=== PATIENT | female | born 1975 | race Caucasian/White ===

== ENCOUNTER 2017-07-17 21:16 | Emergency (ER) | payer OTHER ==
[2017-07-17 21:27] VITALS: BP 130/87; PULSE 70; TEMP 97.8; BMI 28.3
[2017-07-17] MEDS ORDERED: PANTOPRAZOLE SODIUM 40 MG VIAL IVPUSH ONE (22:30)
[2017-07-17] MEDS ORDERED: ONDANSETRON 4 MG/2 ML VIAL IVPUSH ONE (22:33)
--- NOTE | 2017-07-17 22:34 | PDOC ---
History of Present Illness - General Chief Complaint: Pain Stated Complaint: VOMITING,DIZZINESS Time Seen by Provider: 07/17/17 22:09 History Source: Patient Exam Limitations: No Limitations - History of Present Illness Initial Comments: 07/17/17 22:45 41F with significant past medical history of hypertension and hyperlipidemia who presents to the emergency department with 3 days of nausea, vomiting and epigastric pain and burning radiating to throat and periumbilical pain radiating to bladder exacerbated upon urination. 07/17/17 23:41 PCP: Dr. Ventura Past History - Past Medical History Allergies/Adverse Reactions: Allergies Allergy/AdvReac Type Severity Reaction Status Date / Time Penicillins Allergy Rash Verified 07/17/17 21:27 Home Medications: Ambulatory Orders NK [No Known Home Medication] 07/27/14 COPD: No Other medical history: denies - Surgical History Abdominal Surgery: Yes (HERNIA) Cardiac Surgery: Yes - Suicide/Smoking/Psychosocial Hx Smoking History: Never smoked Information on smoking cessation initiated: No Hx Alcohol Use: No Drug/Substance Use Hx: No Substance Use Type: None Review of Systems - Review of Systems Able to Perform ROS?: Yes Is the patient limited Czech proficient: Yes Constitutional: No: Symptoms Reported HEENTM: Yes: Throat Pain Respiratory: No: Symptoms reported Cardiac (ROS): No: Symptoms Reported ABD/GI: Yes: See HPI : Yes: See HPI Musculoskeletal: No: Symptoms Reported Integumentary: No: Symptoms Reported Neurological: No: Symptoms reported All Other Systems: Reviewed and Negative *Physical Exam - Vital Signs Last Vital Signs Temp Pulse Resp BP Pulse Ox 97.8 F 70 17 130/87 100 07/17/17 21:25 07/17/17 21:25 07/17/17 21:25 07/17/17 21:25 07/17/17 21:25 - Physical Exam General Appearance: Yes: Nourished, Appropriately Dressed, Apparent Distress HEENT: positive: EOMI, SHRUTHI, Normal ENT Inspection Respiratory/Chest: positive: Lungs Clear, Normal Breath Sounds. negative: Chest Tender, Respiratory Distress Cardiovascular: positive: Regular Rhythm, Regular Rate, S1, S2 Gastrointestinal/Abdominal: positive: Normal Bowel Sounds, Tender (epigastic. periumbilical), Flat, Soft Musculoskeletal: positive: Normal Inspection. negative: CVA Tenderness Extremity: positive: Normal Capillary Refill, Normal Inspection Integumentary: positive: Normal Color, Dry, Warm Neurologic: positive: Fully Oriented, Alert, Normal Mood/Affect, Normal Response , Motor Strength 09/17 ED Treatment Course - LABORATORY CBC & Chemistry Diagram: 07/17/17 22:45 07/17/17 22:45 Medical Decision Making - Medical Decision Making 07/17/17 22:56 will check labs and give zofran, protonix, fluids. 07/17/17 23:[address] Harding *DC/Admit/Observation/Transfer Diagnosis at time of Disposition: Abdominal pain - Referrals Referrals: Heather Miranda MD [Primary Care Provider] - - Patient Instructions - Post Discharge Activity
[2017-07-17] MEDS ORDERED: PANTOPRAZOLE SODIUM 40 MG VIAL ONE (22:41)
[2017-07-17] MEDS ORDERED: ONDANSETRON 4 MG/2 ML VIAL ONE (22:41)
[2017-07-17 22:53] LABS: BASO % 0.5 % (0-2.0); EOS % 5.1 % (0-4.5); HEMOGLOBIN 12.2 GM/dL (10.7-15.3); LYMPH % 26.8 % (8-40); MCH 30.2 pg (25.7-33.7); MEAN CELL VOLUME 88.7 fl (80-96); MEAN PLT VOLUME 8.6 fl (7.5-11.1); MONO % 9.1 % (3.8-10.2); NEUT % 58.5 % (42.8-82.8); PLATELET COUNT 233 K/MM3 (134-434); RBC 4.06 M/mm3 (3.60-5.2); RDW 14.2 % (11.6-15.6); WHITE BLOOD COUNT 7.1 K/mm3 (4.0-10.0)
[2017-07-17 23:22] LABS: ALBUMIN 3.8 g/dl (3.4-5.0); ANION GAP 13 (8-16); BILIRUBIN,TOTAL 0.2 mg/dL (0.2-1.0); BLOOD UREA NITROGEN 14 mg/dL (7-18); CALCIUM 8.6 mg/dL (8.5-10.1); CHLORIDE 106 mmol/L (98-107); CO2 22 mmol/L (21-32); CREATININE 0.8 mg/dL (0.55-1.02); GLUCOSE,RANDOM 84 mg/dL (74-106); POTASSIUM 3.3 mmol/L (3.5-5.1); SGOT/AST 22 U/L (15-37); SGPT/ALT 19 U/L (12-78); SODIUM 141 mmol/L (136-145); TOT PROT 8.3 g/dl (6.4-8.2)
[2017-07-17 23:23] LABS: ALK PHOS 95 U/L (45-117)
[2017-07-17] MEDS ORDERED: SODIUM CHLORIDE 1,000 ML IV STA (23:36)
[2017-07-17] MEDS ORDERED: POTASSIUM CHLORIDE TABS 20 MEQ TABLET.ER (FP) PO ONE (23:37)
[2017-07-17] MEDS ORDERED: MAG HYDROX/AL HYDROX/SIMETH 30 ML UNIT-DOSE CUP PO ONE (23:42)
[2017-07-18 00:08] LABS: URINE APPEARANCE CLEAR; URINE BILIRUBIN NEGATIVE (NEGATIVE); URINE BLOOD NEGATIVE (NEGATIVE); URINE COLOR COLORLESS; URINE GLUCOSE (UA) NEGATIVE (NEGATIVE); URINE KETONE NEGATIVE (NEGATIVE); URINE LEUK ESTERASE NEGATIVE (NEGATIVE); URINE NITRITE NEGATIVE (NEGATIVE); URINE PROTEIN NEGATIVE (NEGATIVE); URINE UROBILINOGEN NEGATIVE mg/dL (0.2-1.0)
[2017-07-18] MEDS ORDERED: MAG HYDROX/AL HYDROX/SIMETH 30 ML UNIT-DOSE CUP ONE (00:15)
[2017-07-18] MEDS ORDERED: POTASSIUM CHLORIDE TABS 20 MEQ TABLET.ER (FP) PO ONE (00:15)
[2017-07-18] MEDS ORDERED: MECLIZINE HCL 25 MG TABLET (FP) PO ONE (00:39)
--- NOTE | 2017-07-18 00:43 | PDOC ---
Attending Attestation - HPI HPI: 07/18/17 00:43 The patient is a 41 year old female with history of hypertension and hyperlipidemia who presents to the ED complaining of abdominal pain for approximately 3 days. She describes epigastric pain that is burning in nature, radiating to the neck, with associated nausea and nonbloody nonbilious vomiiting. She also complains of periumbilical and suprapubic pain that is worse when she urinates. No fever or chills. No chest pain or shortness of breath. - Physicial Exam PE: 07/18/17 00:46 GENERAL: Awake, alert, and fully oriented, in no acute distress HEAD: No signs of trauma EYES: PERRLA, EOMI, sclera anicteric, conjunctiva clear ENT: Auricles normal inspection, nares patent. Moist mucosa NECK: Normal ROM, supple, no JVD, or masses LUNGS: Breath sounds equal, clear to auscultation bilaterally. No wheezes, and no crackles HEART: Regular rate and rhythm, normal S1 and S2, no murmurs, rubs or gallops ABDOMEN: Soft, nontender, normoactive bowel sounds. No guarding, no rebound. No masses EXTREMITIES: Normal range of motion, no edema. No clubbing or cyanosis. No cords, erythema, or tenderness NEUROLOGICAL: Alert and oriented x 3. Moves all extremities. Face is symmetric. SKIN: Warm, Dry, normal turgor, no rashes or lesions noted. 07/18/17 00:49 Documentation prepared by Jaqueline Ferrari, acting as medical customer service representative for Celina Harding MD. <Jaqueline Ferrari - Last Filed: 07/18/17 00:49> - Resident Resident Name: Davey Yao - ED Attending Attestation I have performed the following: I have examined & evaluated the patient, The case was reviewed & discussed with the resident, I agree w/resident's findings & plan, Exceptions are as noted - Medical Decision Making 07/18/17 01:42 labs reviewed and k=3.3 and supplemented cbc normal ua negative stable VS ekg nsr 71 bpm no further vomitng abd no rebound.no guarding no fever IMP gastritis <Celina Harding - Last Filed: 07/18/17 01:45>
[2017-07-18] MEDS ORDERED: MECLIZINE HCL 25 MG TABLET (FP) ONE (01:08)
--- NOTE | 2017-07-18 01:12 | PDOC ---
*Physical Exam - Vital Signs Last Vital Signs Temp Pulse Resp BP Pulse Ox 97.8 F 70 17 130/87 100 07/17/17 21:25 07/17/17 21:25 07/17/17 21:25 07/17/17 21:25 07/17/17 21:25 ED Treatment Course - LABORATORY CBC & Chemistry Diagram: 07/17/17 22:45 07/17/17 22:45 - ADDITIONAL ORDERS Additional order review: Laboratory Results 07/17/17 07/17/17 23:58 22:45 Sodium 141 Potassium 3.3 L Chloride 106 Carbon Dioxide 22 Anion Gap 13 BUN 14 Creatinine 0.8 Creat Clearance w eGFR > 60 Random Glucose 84 Calcium 8.6 Total Bilirubin 0.2 D AST 22 ALT 19 Alkaline Phosphatase 95 Total Protein 8.3 H Albumin 3.8 Urine Color Colorless Urine Appearance Clear Urine pH 8.0 D Ur Specific [place] 1.004 Urine Protein Negative Urine Glucose (UA) Negative Urine Ketones Negative Urine Blood Negative Urine Nitrite Negative Urine Bilirubin Negative Urine Urobilinogen Negative Ur Leukocyte Esterase Negative 07/17/17 22:45 RBC 4.06 MCV 88.7 MCHC 34.0 RDW 14.2 MPV 8.6 Neutrophils % 58.5 Lymphocytes % 26.8 D Monocytes % 9.1 Eosinophils % 5.1 H Basophils % 0.5 - Medications Given in the ED: ED Medications Discontinued Medications Generic Name Dose Route Start Last Admin Trade Name Freq PRN Reason Stop Dose Admin Al Hydroxide/Mg Hydroxide 30 ml 07/17/17 23:42 07/18/17 00:26 Mylanta Oral Suspension - PO 07/17/17 23:43 30 ml ONCE ONE Administration Sodium Chloride 1,000 mls @ 1,000 mls/hr 07/17/17 23:36 07/18/17 00:25 Normal Saline - IV 07/18/17 00:35 1,000 mls/hr ASDIR STA Administration Ondansetron HCl 4 mg 07/17/17 22:33 07/17/17 23:05 Zofran Injection IVPUSH 07/17/17 22:34 4 mg ONCE ONE Administration Pantoprazole Sodium 40 mg 07/17/17 22:30 07/17/17 23:05 Protonix Iv IVPUSH 07/17/17 22:31 40 mg ONCE ONE Administration Potassium Chloride 20 meq 07/17/17 23:37 07/18/17 00:25 K-Dur - PO 07/17/17 23:38 20 meq ONCE ONE Administration *DC/Admit/Observation/Transfer Diagnosis at time of Disposition: Abdominal pain Qualifiers: Abdominal location: generalized Qualified Code(s): R10.84 - Generalized abdominal pain Nausea & vomiting Qualifiers: Vomiting type: unspecified Vomiting Intractability: non-intractable Qualified Code(s): R11.2 - Nausea with vomiting, unspecified - Discharge Dispostion Disposition: HOME Condition at time of disposition: Stable - Prescriptions Prescriptions: Ondansetron [Zofran Odt -] 4 mg SL TID PRN #12 od.tablet PRN Reason: Nausea And/Or Vomiting - Referrals Referrals: Heather Miranda MD [Primary Care Provider] - - Patient Instructions Printed Discharge Instructions: DI for Vomiting -- Adult, DI for Abdominal Pain -Adult Additional Instructions: please advance your diet as tolerated with liquids first then start with solids such as bananas,rice ,toast,applesauce Please follow up with you r physician Return if you develop fever or any worsening symptoms - Post Discharge Activity
--- NOTE | 2017-07-18 10:42 | EKG ---
Test Reason : Blood Pressure : / mmHG Vent. Rate : 071 BPM Atrial Rate : 071 BPM P-R Int : 156 ms QRS Dur : 080 ms QT Int : 382 ms P-R-T Axes : 062 063 049 degrees QTc Int : 415 ms NORMAL SINUS RHYTHM NORMAL ECG WHEN COMPARED WITH ECG OF 27-JUL-2014 12:55, NO SIGNIFICANT CHANGE WAS FOUND Confirmed by SANDRA BALDERAS MD ([id number]) on 07/18/2017 10:42:11 AM Referred By: Confirmed By:SANDRA BALDERAS MD
== END 2017-07-18 01:25 | disposition home or self-care (01) ==
LOC: JER 21:16
PROC: 3E033GC Introduction of Other Therapeutic Substance into Peripheral Vein, Percutaneous Approach (ICD-10-PCS; principal; 2017-07-17)
PROC: 3E0337Z Introduction of Electrolytic and Water Balance Substance into Peripheral Vein, Percutaneous Approach (ICD-10-PCS; 2017-07-17)
DX: R10.9 Unspecified abdominal pain (principal); I10 Essential (primary) hypertension; E78.5 Hyperlipidemia, unspecified; Z88.0 Allergy status to penicillin
CPT/HCPCS: 36415; 80053; 81003; 85025; 87086; 93005; 93010; 99282-25

== ENCOUNTER 2023-06-23 02:52 | Emergency (ER) | payer OTHER ==
[2023-06-23 03:03] VITALS: BP 146/87; PULSE 75; RESP 20; TEMP 98.2; BMI 34.0
[2023-06-23] MEDS ORDERED: ONDANSETRON 4 MG/2 ML VIAL ONE (05:42)
[2023-06-23] MEDS ORDERED: ACETAMINOPHEN INJECTION 100 ML IVPB ONE (05:42)
[2023-06-23] MEDS: ONDANSETRON 4 MG/2 ML VIAL IVPUSH ONE (05:48)
[2023-06-23] MEDS: ACETAMINOPHEN 1000 MG/100 ML BAG IVPB ONE (05:48)
[2023-06-23 06:11] LABS: BASO % 0.6 % (0-2.0); EOS % 2.3 % (0-4.5); HEMATOCRIT 36.5 % (32.4-45.2); LYMPH % 22.6 % (8-40); MCH 28.4 pg (25.7-33.7); MCHC 32.8 g/dl (32.0-36.0); MEAN CELL VOLUME 86.7 fl (80-96); MEAN PLT VOLUME 7.8 fl (7.5-11.1); MONO % 7.2 % (3.8-10.2); NEUT % 67.3 % (42.8-82.8); PLATELET COUNT 323 10^3/uL (134-434); RBC 4.21 M/mm3 (3.60-5.2); RDW 14.4 % (11.6-15.6)
[2023-06-23 06:13] LABS: EPI CELLS 14 /uL (0-25.1); HYALINE CASTS 0 /uL (0-3.1); URINE APPEARANCE CLEAR; URINE BACTERIA 31 /uL (0-1359); URINE BILIRUBIN NEGATIVE (NEGATIVE); URINE COLOR YELLOW; URINE GLUCOSE (UA) NEGATIVE (NEGATIVE); URINE KETONE NEGATIVE (NEGATIVE); URINE LEUK ESTERASE TRACE (NEGATIVE); URINE NITRITE NEGATIVE (NEGATIVE); URINE PROTEIN NEGATIVE (NEGATIVE); URINE RBC 21 /uL (0-23.9); URINE UROBILINOGEN 0.2 mg/dL (0.2-1.0); URINE WBC 14 /uL (0-25.8)
[2023-06-23 06:20] LABS: INR 1.11 (0.83-1.09); PROTHROMBIN TIME (PATIENT) 12.9 SEC (9.7-13.0)
[2023-06-23 06:23] LABS: ACTIVATED PTT 34.1 SECONDS (25.2-36.5)
[2023-06-23 06:24] LABS: POTASSIUM 4.6 mmol/L (3.5-5.1)
[2023-06-23 06:26] LABS: CALCIUM 9.3 mg/dL (8.5-10.1)
[2023-06-23 06:27] LABS: ALBUMIN 3.6 g/dl (3.4-5.0); BLOOD UREA NITROGEN 10.2 mg/dL (7-18)
[2023-06-23 06:30] LABS: CREATININE 0.7 mg/dL (0.55-1.3)
[2023-06-23 06:31] LABS: BILIRUBIN,TOTAL 0.3 mg/dL (0.2-1)
[2023-06-23 06:32] LABS: TOT PROT 8.1 g/dl (6.4-8.2)
[2023-06-23] MEDS ORDERED: FAMOTIDINE 20 MG/50 ML IVPB 20 MG/50 ML MG IVPB ONE (07:03)
[2023-06-23] MEDS: FAMOTIDINE 20 MG/50 ML IVPB 20 MG/50 ML MG IVPB ONE (07:06)
== END 2023-06-23 12:37 | disposition home or self-care (01) ==
LOC: JER 02:52
PROC: 3E033GC Introduction of Other Therapeutic Substance into Peripheral Vein, Percutaneous Approach (ICD-10-PCS; principal; 2023-06-23)
PROC: 3E033GC Introduction of Other Therapeutic Substance into Peripheral Vein, Percutaneous Approach (ICD-10-PCS; 2023-06-23)
PROC: 3E033GC Introduction of Other Therapeutic Substance into Peripheral Vein, Percutaneous Approach (ICD-10-PCS; 2023-06-23)
DX: R05.9 Cough, unspecified (principal); R10.84 Generalized abdominal pain; M54.6 Pain in thoracic spine; R11.2 Nausea with vomiting, unspecified; R19.7 Diarrhea, unspecified; U07.1 COVID-19
CPT/HCPCS: 0241U-QW; 36415; 71046-TC-FY; 74177-TC; 80053; 81003; 83690; 84484; 84703; 85025; 85610; 85730; 86850; 86900; 86901; 87086; 93005; 93010; 99285-25; J0131